=== PATIENT | female | born 1975 ===

== ENCOUNTER 2024-03-23 11:22 | Outpatient (CLI) | payer OTHER ==
[~2024-03-23 11:22] MED LIST: AMLODIPINE BESY10 MG; BENAZEPRIL HCTZ; SINGULAIR 10MG10 MG
== END 2024-03-23 11:38 | disposition home or self-care (01) ==
LOC: RAD 11:22
PROVIDERS: ATTEND Orthopaedic Surgery
DX: M17.0 Bilateral primary osteoarthritis of knee (principal)